=== PATIENT | female | born 1995 | race Caucasian/White ===

== ENCOUNTER 2023-01-11 12:44 | Emergency (ER) | payer OTHER ==
--- OUTSIDE RECORDS SUMMARY | 2023-01-11 12:52 | XMS REPORT | Continuity of Care Document ---
:1995 Author Organization [facility] t Address [address] [place] [address] [place] [id number] Care Team Providers Name Role Phone ELISA GALVAN Attending Clinician Unavailable Payers Payer Name Policy Type Policy Number Effective Date Expiration Date S tae RAMIREZ JONH NIETO: 9 [id number] 2023 [facility] ON 00:00:00 STANDARD Problems This patient has no known problems. Allergies, Adverse Reactions, Alerts This patient has no known allergies or adverse reactions. Medications This patient has no known medications. Procedures This patient has no known procedures. Encounters Start End Encounter Admission Attending Care Care Encounter Source Date/Time Date/Time Type Type Clinicians Facility Department ID 2023-01-11 2023-01-11 Outpatient SANTOS [facility]NA[facility] [id number] Niurka 00:00:00 00:00:00 MARIO, ELISA hall Results This patient has no known results.
[2023-01-11 13:25] LABS: Urine Blood 3+ (Negative); Urine Glucose Negative (Negative); Urine Protein 2+ (Negative); Urine Specific Gravity 1.025 (1.005-1.030); Urine pH 7.5 (5.0-7.0)
[2023-01-11] MEDS ORDERED: NA CHLORIDE 0.9% 1,000 ML ONE ×2 (13:29→13:36)
[2023-01-11 13:36] LABS: Absolute Lymphocytes (CBC) 1.7 K/uL (0.7-4.9); Lymphocytes % 23.4 % (15.3-44.8); MCV 88.5 fL (80-100); MPV 7.3 fL (7.6-11.3); RBC Red Blood Cell Count 4.74 M/uL (3.86-4.86)
[2023-01-11 14:09] LABS: Urine Specific Gravity/Preg 1.025 (1.005-1.030)
[2023-01-11 14:12] LABS: Potassium 4.1 mmol/L (3.5-5.1)
--- NOTE | 2023-01-11 14:53 | RAD REPORT ---
EXAM DESCRIPTION: US - Transvaginal OB - 01/11/2023 2:24 pm CLINICAL HISTORY: ABD CRAMPING, COMPARISON: No comparisons FINDINGS: No IUP is visualized. The uterus is normal sized. 8 mm endometrial thickness without IUP. The maternal adnexa and ovaries are within normal limits. Normal Doppler blood flow was demonstrated to both ovaries. IMPRESSION: No IUP visualized. In the setting of a positive HCG level, this would be considered preg jose antonio of unknown location. Recommend follow-up pelvic sonography and serial HCG levels.
[2023-01-11 18:05] VITALS: TEMP 97.6
[2023-01-11 18:06] VITALS: BP 118/82; O2SAT 100
--- NOTE | 2023-01-11 20:59 | RAD REPORT ---
EXAM DESCRIPTION: US - Pelvis Complete - 01/11/2023 2:28 pm CLINICAL HISTORY: ABD CRAMPING, COMPARISON: No comparisons FINDINGS: No IUP is visualized. The uterus is normal sized. 8 mm endometrial thickness without IUP. The maternal adnexa and ovaries are within normal limits. Normal Doppler blood flow was demonstrated to both ovaries. IMPRESSION: No IUP visualized. In the setting of a positive HCG level, this would be considered preg jose antonio of unknown location. Recommend follow-up pelvic sonography and serial HCG levels.
--- NOTE | 2023-01-28 14:22 | EDPHYS ---
Physician Documentation [facility] Name: Charity Reyes Age: 28 yrs Sex: Female : 1995 Arrival Date: 01/11/2023 Time: 12:50 Bed 9 Private MD: TRELL Physician Dejuan Alanis HPI: 01/11 15:13 This 28 yrs old Female presents to ER via Ambulatory with complaints of doyle Vaginal Bleeding, + Preg <12wks. Historical: - Allergies: 13:11 No Known Allergies; ld1 - Home Meds: 13:11 None [Active]; ld1 - PMHx: 13:11 None; ld1 - PSHx: 13:11 None; ld1 - Immunization history:: Adult Immunizations up to date. - Social history:: Smoking status: Patient denies any tobacco usage or history of. Patient/guardian denies using alcohol. ROS: 15:15 Constitutional: Negative for fever, chills, and weight loss, Eyes: Negative for injury, doyle pain, redness, and discharge, ENT: Negative for injury, pain, and discharge, Neck: Negative for injury, pain, and swelling, Cardiovascular: Negative for chest pain, palpitations, and edema, Respiratory: Negative for shortness of breath, cough, wheezing, and pleuritic chest pain, Abdomen/GI: Negative for abdominal pain, nausea, vomiting, diarrhea, and constipation, Back: Negative for injury and pain, MS/Extremity: Negative for injury and deformity, Skin: Negative for injury, rash, and discoloration, Neuro: Negative for headache, weakness, numbness, tingling, and seizure, Psych: Negative for depression, anxiety, suicide ideation, homicidal ideation, and hallucinations, Allergy/Immunology: Negative for hives, rash, and allergies, Endocrine: Negative for neck swelling, polydipsia, polyuria, polyphagia, and marked weight changes, Hematologic/Lymphatic: Negative for swollen nodes, abnormal bleeding, and unusual bruising. 15:15 : Positive for vaginal bleeding. Exam: 15:15 Constitutional: This is a well developed, well nourished patient who is awake, alert, doyle and in no acute distress. Head/Face: Normocephalic, atraumatic. Eyes: Pupils equal round and reactive to light, extra-ocular motions intact. Lids and lashes normal. Conjunctiva and sclera are non-icteric and not injected. Cornea within normal limits. Periorbital areas with no swelling, redness, or edema. ENT: Nares patent. No nasal discharge, no septal abnormalities noted. Tympanic membranes are normal and external auditory canals are clear. Oropharynx with no redness, swelling, or masses, exudates, or evidence of obstruction, uvula midline. Mucous membranes moist. Neck: Trachea midline, no thyromegaly or masses palpated, and no cervical lymphadenopathy. Supple, full range of motion without nuchal rigidity, or vertebral point tenderness. No Meningismus. Chest/axilla: Normal chest wall appearance and motion. Nontender with no deformity. No lesions are appreciated. Cardiovascular: Regular rate and rhythm with a normal S1 and S2. No gallops, murmurs, or rubs. Normal PMI, no JVD. No pulse deficits. Respiratory: Lungs have equal breath sounds bilaterally, clear to auscultation and percussion. No rales, rhonchi or wheezes noted. No increased work of breathing, no retractions or nasal flaring. Abdomen/GI: Soft, non-tender, with normal bowel sounds. No distension or tympany. No guarding or rebound. No evidence of tenderness throughout. Back: No spinal tenderness. No costovertebral tenderness. Full range of motion. Skin: Warm, dry with normal turgor. Normal color with no rashes, no lesions, and no evidence of cellulitis. MS/ Extremity: Pulses equal, no cyanosis. Neurovascular intact. Full, normal range of motion. Neuro: Awake and alert, GCS 15, oriented to person, place, time, and situation. Cranial nerves II-XII grossly intact. Motor strength 5/5 in all extremities. Sensory grossly intact. Cerebellar exam normal. Normal gait. Psych: Awake, alert, with orientation to person, place and time. Behavior, mood, and affect are within normal limits. 15:15 : Exam negative for acute changes, CVA tenderness, is absent, Pelvic Exam: the exam is deferred, Sexual behavior: the patient is sexually active, and reports a single partner. Vital Signs: 13:09 BP 130 / 79; Pulse 89; Resp 18; Temp 97.6(TE); Pulse Ox 98% on R/A; Weight 72.57 kg; ld1 Height 5 ft. 3 in. ; Pain 6/10; 15:29 BP 118 / 82; Pulse 70; Resp 16; Pulse Ox 100% ; Pain 0/10; mb9 13:09 Body Mass Index 28.34 (72.57 kg, 160.02 cm) ld1 13:09 Pain Scale: Adult ld1 15:29 Pain Scale: Adult mb9 MDM: 12:51 Patient medically screened. [facility] 01/11 12:52 Order name: Abo/rh Typing [facility] 01/11 12:52 Order name: Basic Metabolic Panel [facility] 01/11 12:52 Order name: CBC with Diff [facility] 01/11 12:52 Order name: Quantitative Hcg [facility] 01/11 13:25 Order name: Urine --Ancillary (enter results) 01/11 13:25 Order name: Urine Dipstick-Ancillary; Complete Time: 14:50 EDAK 01/11 13:45 Order name: CBC with Automated Diff; Complete Time: 14:50 EDAK 01/11 14:00 Order name: ABO/RH typing; Complete Time: 14:50 EDAK 01/11 14:10 Order name: Urine --Ancillary; Complete Time: 14:50 EDAK 01/11 14:13 Order name: Basic Metabolic Panel; Complete Time: 14:50 EDAK 01/11 14:13 Order name: HCG, Quantitative; Complete Time: 14:50 EDAK 01/11 15:14 Order name: Rhogam [facility] 01/11 16:18 Order name: Rh Typing [facility] 01/11 17:30 Order name: Antibody Screen [facility] 01/11 17:30 Order name: Fetalscreen [facility] 01/11 17:30 Order name: Cord Rh type [facility] 01/11 12:52 Order name: US Transvaginal Ob [facility] 01/11 14:53 Order name: US; Complete Time: 14:57 EDAK 01/11 17:23 Order name: Pelvis Complete [facility] 01/11 12:52 Order name: IV Saline Lock; Complete Time: 13:28 [facility] 01/11 12:52 Order name: Labs collected and sent; Complete Time: 13:28 [facility] 01/11 12:52 Order name: NPO; Complete Time: 13:34 [facility] 01/11 12:52 Order name: Urine Dipstick-Ancillary (obtain specimen); Complete Time: 13:34 [facility] 01/11 12:52 Order name: Urine Test (obtain specimen); Complete Time: 13:34 doyle Administered Medications: 14:01 Drug: NS 0.9% IV 1000 ml Route: IV; Rate: 1 bolus; Site: right antecubital; kr3 18:00 Follow up: Response: No adverse reaction; IV Status: Completed infusion; IV Intake: kr3 1000ml 17:45 Drug: Rho D Immune Globulin IM 300 mcg Route: IM; Site: right deltoid; kr3 18:00 Follow up: Response: No adverse reaction kr3 Point of Care Testing: Urine : 17:59 hCG Reading: Positive; Control Reading: Positive; kr3 Disposition Summary: 01/11/23 15:18 Discharge Ordered Location: Home doyle Problem: new doyle Symptoms: have improved odyle Condition: Stable odyle Diagnosis - Threatened doyle Followup: doyle - With: Private Physician - When: 2 - 3 days - Reason: Recheck today's complaints, Continuance of care, Re-evaluation by your physician Discharge Instructions: - Discharge Summary Sheet doyle - Care doyle - Threatened Miscarriage doyle - Vaginal Bleeding During , First Trimester doyle - Threatened Miscarriage, Fuir-hk-Fwry doyle - Vaginal Bleeding During , First Trimester, Yafr-rd-Wgfe doyle Forms: - Medication Reconciliation Form doyle - Thank You Letter doyle - Antibiotic Education doyle - Prescription Opioid Use doyle Signatures: Dispatcher [employer] Dejuan Quiroga MD MD cha Dibbern, Lauren, RN RN ld1 Jasmyn Singh RN RN kr3
--- NOTE | 2023-01-28 14:22 | ER ---
Nurse's Notes [facility] Name: Charity Reyes Age: 28 yrs Sex: Female : 1995 Arrival Date: 01/11/2023 Time: 12:50 Bed 9 Private MD: Diagnosis: Threatened Presentation: 01/11 13:09 Chief complaint: Patient states: Found out I was on 12/30/2022. Last night I ld1 began bleeding \T\ cramping. Today I am cramping and bleeding heavily. Coronavirus screen: At this time, the client does not indicate any symptoms associated with coronavirus-19. Ebola Screen: No symptoms or risks identified at this time. Initial Sepsis Screen: Does the patient meet any 2 criteria? No. Patient's initial sepsis screen is negative. Does the patient have a suspected source of infection? No. Patient's initial sepsis screen is negative. Risk Assessment: Do you want to hurt yourself or someone else? Patient reports no desire to harm self or others. Onset of symptoms was January 11, 2023. 13:09 Method Of Arrival: Ambulatory ld1 13:09 Acuity: DAT 3 ld1 Triage Assessment: 13:11 General: Appears in no apparent distress. comfortable, Behavior is calm, cooperative, ld1 appropriate for age. Pain: Complains of pain in abdomen Pain does not radiate. Pain currently is 9 out of 10 on a pain scale. Quality of pain is described as crampy, Pain began suddenly, Is continuous. EENT: No signs and/or symptoms were reported regarding the EENT system. Neuro: Level of Consciousness is awake, alert, obeys commands, Oriented to person, place, time, situation, Appropriate for age. Cardiovascular: Capillary refill < 3 seconds Patient's skin is warm and dry. Respiratory: Airway is patent Respiratory effort is even, unlabored. GI: Abdomen is round non-distended, Reports cramping. : Reports vaginal bleeding that is with clots. Derm: No signs and/or symptoms reported regarding the dermatologic system. Musculoskeletal: No signs and/or symptoms reported regarding the musculoskeletal system. Historical: - Allergies: 13:11 No Known Allergies; ld1 - Home Meds: 13:11 None [Active]; ld1 - PMHx: 13:11 None; ld1 - PSHx: 13:11 None; ld1 - Immunization history:: Adult Immunizations up to date. - Social history:: Smoking status: Patient denies any tobacco usage or history of. Patient/guardian denies using alcohol. Screenin:30 [facility] ED Fall Risk Assessment (Adult) History of falling in the last 3 months, mb9 including since admission No falls in past 3 months (0 pts) Confusion or Disorientation No (0 pts) Intoxicated or Sedated No (0 pts) Impaired Gait No (0 pts) Mobility Assist Device Used No (0 pt) Altered Elimination No (0 pt) Score/Fall Risk Level 0 - 2 = Low Risk Oriented to surroundings, Maintained a safe environment, Educated pt \T\ family on fall prevention, incl call for assistance when getting out of bed. Abuse screen: Denies threats or abuse. Nutritional screening: No deficits noted. Tuberculosis screening: No symptoms or risk factors identified. Assessment: 15:29 General: Appears in no apparent distress. Behavior is calm, cooperative. Pain: Denies mb9 pain. Neuro: Level of Consciousness is awake, alert, obeys commands, Oriented to person, place, time, situation, Appropriate for age. Respiratory: Airway is patent Respiratory effort is even, unlabored, Respiratory pattern is regular, symmetrical. : Reports vaginal bleeding that is. Derm: Skin is pink, warm \T\ dry. Musculoskeletal: Range of motion: intact in all extremities. 17:59 Obstetrical Assessment: General assessment: awake and alert. kr3 Vital Signs: 13:09 BP 130 / 79; Pulse 89; Resp 18; Temp 97.6(TE); Pulse Ox 98% on R/A; Weight 72.57 kg; ld1 Height 5 ft. 3 in. ; Pain 6/10; 15:29 BP 118 / 82; Pulse 70; Resp 16; Pulse Ox 100% ; Pain 0/10; mb9 13:09 Body Mass Index 28.34 (72.57 kg, 160.02 cm) ld1 13:09 Pain Scale: Adult ld1 15:29 Pain Scale: Adult mb9 ED Course: 12:50 Patient arrived in ED. rg4 12:51 Dejuan Alanis MD is Attending Physician. doyle 12:55 Radiology exam delayed due to test not completed at this time. aa4 13:11 Triage completed. ld1 13:11 Arm band placed on right wrist. ld1 13:15 Bed in low position. Call light in reach. Side rails up X 1. kr3 13:23 Jasmyn Singh, RN is Primary Nurse. kr3 13:28 Inserted saline lock: 20 gauge in right antecubital area, using aseptic technique. ah1 Blood collected. 13:28 Abo/rh Typing Sent. ah1 13:28 Basic Metabolic Panel Sent. ah1 13:28 CBC with Diff Sent. ah1 13:28 Quantitative Hcg Sent. ah1 13:34 Urine --Ancillary (enter results) Sent. mb9 15:30 No provider procedures requiring assistance completed. mb9 15:41 Rhogam Sent. ah1 17:23 Pelvis Complete In Process Unspecified. EDMS 17:58 IV discontinued, intact, bleeding controlled, No redness/swelling at site. Pressure kr3 dressing applied. Administered Medications: 14:01 Drug: NS 0.9% IV 1000 ml Route: IV; Rate: 1 bolus; Site: right antecubital; kr3 18:00 Follow up: Response: No adverse reaction; IV Status: Completed infusion; IV Intake: kr3 1000ml 17:45 Drug: Rho D Immune Globulin IM 300 mcg Route: IM; Site: right deltoid; kr3 18:00 Follow up: Response: No adverse reaction kr3 Medication: 17:59 VIS not applicable for this client. kr3 Point of Care Testing: Urine : 17:59 hCG Reading: Positive; Control Reading: Positive; kr3 Intake: 18:00 IV: 1000ml; Total: 1000ml. kr3 Outcome: 15:18 Discharge ordered by . doyle 17:58 Discharged to home ambulatory. kr3 17:58 Condition: stable 17:58 Discharge instructions given to patient, Instructed on discharge instructions, follow up and referral plans. Demonstrated understanding of instructions, follow-up care. 18:00 Patient left the ED. kr3 Signatures: Dispatcher [employer] EDMS Dejuan Alanis MD MD cha Frazier, Amanda aa4 Garcia, Rubi rg4 Dibbern, Lauren RN RN ld1 Jasmyn Singh, RN RN kr3 Mireya King RN RN mb9 Rolf Lucero [facility]
== END 2023-01-11 18:00 | disposition home or self-care (01) ==
LOC: ER 12:44
DX: O20.0 Threatened abortion (principal)
CPT/HCPCS: 96361; 85025; 80048; 36415; 86900; 86850; 81025; 85461; 86901 ×2; 84702; 81003; 76856; 76817; 96360; 96372; 99284; J2790; J7030 ×2